=== PATIENT | male | born 1950 | race Caucasian/White ===

== ENCOUNTER → 2023-12-27 12:12 | Outpatient (REF) | payer OTHER, SELFPAY | LOC: HWRAD 12:12 | PROVIDERS: ATTENDING PHYSICIAN Internal Medicine; FAMILY PHYSICIAN Internal Medicine; REFERRING PHYSICIAN Urology | DX: K63.89 Other specified diseases of intestine (principal) | CPT/HCPCS: 74176 ==

== ENCOUNTER → 2024-06-19 12:24 | Outpatient (REF) | payer OTHER, SELFPAY | LOC: HWRAD 12:24 | PROVIDERS: ATTENDING PHYSICIAN Internal Medicine; FAMILY PHYSICIAN Internal Medicine; OTHER PHYSICIAN Urology; REFERRING PHYSICIAN Specialist | DX: K63.89 Other specified diseases of intestine (principal) | CPT/HCPCS: 74176 ==

== ENCOUNTER → 2024-12-13 12:28 | Outpatient (REF) | payer OTHER, SELFPAY | LOC: HWRAD 12:28 | PROVIDERS: ATTENDING PHYSICIAN Internal Medicine; FAMILY PHYSICIAN Internal Medicine; OTHER PHYSICIAN Specialist; REFERRING PHYSICIAN Urology | DX: K63.89 Other specified diseases of intestine (principal) | CPT/HCPCS: 74176 ==

== ENCOUNTER → 2025-06-13 11:33 | Outpatient (REF) | payer OTHER, SELFPAY | LOC: HWRAD 11:33 | PROVIDERS: ATTENDING PHYSICIAN Internal Medicine; FAMILY PHYSICIAN Internal Medicine; REFERRING PHYSICIAN Urology | DX: K63.89 Other specified diseases of intestine (principal) | CPT/HCPCS: 74176 ==